=== PATIENT | female | born 1955 | race Caucasian/White ===

== ENCOUNTER 2018-05-11 06:18 | Day surgery (SDC) | payer BC ==
[~2018-05-11 06:18] MED LIST: ACETAMINOPHEN 1,000 MG/100 ML BTL IV ONE
[2018-05-11] MEDS ORDERED: LIDOCAINE 1% MDV (10MG/ML) 20ML VIAL SQ ONE (06:19)
[2018-05-11] MEDS ORDERED: ONDANSETRON HCL IV 4 MG/2 ML VIAL IVP ONE (06:19)
[2018-05-11] MEDS ORDERED: MIDAZOLAM HCL 2MG/2ML VIAL IV ONE (06:19)
[2018-05-11] MEDS ORDERED: FENTANYL PF 100MCG/2ML VIAL IV ONE (06:19)
[2018-05-11] MEDS ORDERED: SEVOFLURANE 250 ML INH ONE (06:19)
[2018-05-11] MEDS ORDERED: EPHEDRINE SULFATE 50 MG/ML ML IV ONE (06:19)
[2018-05-11] MEDS ORDERED: PROPOFOL 10 MG/ML VIAL IV ONE (06:19)
[2018-05-11] MEDS ORDERED: KETOROLAC 30 MG/ML VIAL IVP ONE (06:19)
--- NOTE | 2018-05-12 12:50 | Operative Note ---
DATE OF SURGERY: 05/11/2018 Surgeon: Tal Allen DO PREOPERATIVE DIAGNOSIS: Carpal tunnel syndrome of the left wrist. POSTOPERATIVE DIAGNOSIS: Carpal tunnel syndrome of the left wrist. OPERATION: Decompression left median nerve at the wrist using 3.5 loop magnification. DESCRIPTION OF PROCEDURE: This 63-year-old female was taken to the operating room and placed in the supine position on the operating room table. General anesthesia was induced. The left upper extremity was elevated. It was prepped with Hibiclens and draped in the usual sterile fashion. It was exsanguinated and the tourniquet inflated to 250 mmHg. A palmar incision was utilized following the hypothenar crease from the level of the base of the web space of the thumb to the flexor crease of the wrist. Dissection was carried down through the palmar fascia to expose the flexor retinaculum. This was punctured and then split to its proximal margin. Then with the contents of the carpal tunnel under direct vision, the transverse carpal ligament was transected along its ulnar border. The radial flap was raised to expose the entire median nerve under the transverse carpal ligament. Inspection of the median nerve demonstrated normal appearance of the nerve. The recurrent motor branch of the median nerve also appeared to be normal. A very small superficial vessel was present on the ventral surface of the nerve. That was not disturbed. The wound was then irrigated and suctioned. Tourniquet released. Hemostasis obtained with the electrocautery and the wound closed with interrupted 6-0 nylon suture. Sterile dressings were applied with plaster of splint immobilization with the wrist in slight dorsiflexion and the thumb in an adducted position. CC: Stacy Truong MD [facility] CENTERPrudencio
== END 2018-05-11 08:50 | disposition home or self-care (01) ==
LOC: SUR 06:18
PROVIDERS: ATTEND Orthopaedic Surgery
DX: G56.02 Carpal tunnel syndrome, left upper limb (principal); M19.90 Unspecified osteoarthritis, unspecified site
CPT/HCPCS: 36416; 82948; J1885; J2405